=== PATIENT | male | born 1945 | race Hispanic/Latino ===

== ENCOUNTER 2017-11-29 12:46 | Outpatient (CLI) | payer BC, MEDICARE | END 2017-11-29 12:47 | disposition home or self-care (01) | LOC: BICRAD 12:46 | PROVIDERS: ATTEND Family Medicine | DX: R05 Cough (principal); J84.9 Interstitial pulmonary disease, unspecified | CPT/HCPCS: 71046 ==

== ENCOUNTER 2017-12-03 08:27 | Outpatient (CLI) | payer MEDICARE ==
--- NOTE | 2017-12-03 09:27 | ULT ---
ULTRASOUND ABDOMEN: HISTORY: Bilateral flank pain. COMPARISON: None. TECHNIQUE: Real-time, beyer scale, color Doppler, and spectral analysis of the abdomen was performed with a curvi linear transducer. Visualized portions of the pancreas are unremarkable. Increased hepatic echotexture. The liver marta ures 14.9 cm in length. The aorta and IVC are unremarkable. Some low-grade sludge in the gallbladder. Sonographic Rocha's sign is negative. The common bile duct measures 4 mm. The right kidney measures 10.8 x 5.2 x 5.4 cm and the left kidne y measures 10.7 x 5.4 x 4.8 cm. No renal mass, hydronephrosis, or abnormal calcifications. IMPRESSION: Hepatic steatosis; otherwise, unremarkable exam. POS: BRENNAN
== END 2017-12-03 08:28 | disposition home or self-care (01) ==
LOC: ULT 08:27
PROVIDERS: ATTEND Family Medicine
DX: R10.9 Unspecified abdominal pain (principal); R05 Cough; K76.0 Fatty (change of) liver, not elsewhere classified
CPT/HCPCS: 76700

== ENCOUNTER 2018-11-29 12:58 | Outpatient (CLI) | payer MEDICARE ==
--- NOTE | 2018-11-29 16:00 | RAD ---
CHEST TWO VIEWS: HISTORY: Dyspnea. COMPARISON: 07/14/2014 FINDINGS: Extensive bilateral interstitial, linear, and reticulonodular parenchymal changes throughout both dhruv gs, showing some diffuse progression when compared to the prior study. Minimal cardiomegaly. No sig nificant pleural effusion. No confluent lobar pneumonia. IMPRESSION: 1. Worsening bilateral interstitial, linear, and reticulonodular parenchymal changes throughout both lungs, evidence for progressive nonspecific interstitial chronic lung disease, although the possibil ity of some acute atypical pneumonia or pneumonitis or even some interstitial edema could have a sophie lar radiographic appearance. 2. Minimal cardiomegaly. 3. No confluent lobar pneumonia. 4. Cardiomegaly. POS: BRENNAN
== END 2018-11-29 12:59 | disposition home or self-care (01) ==
LOC: RAD 12:58
PROVIDERS: ATTEND Internal Medicine Pulmonary Disease
DX: R06.00 Dyspnea, unspecified (principal); I51.7 Cardiomegaly; J84.9 Interstitial pulmonary disease, unspecified
CPT/HCPCS: 71046